=== PATIENT | male | born 1985 | race Caucasian/White ===

== ENCOUNTER 2018-08-16 20:07 | Emergency (ER) | payer OTHER ==
[~2018-08-16] VITALS: Ht 180.3 cm; Wt 72.6 kg
[2018-08-16 21:42] VITALS: BP 135/87
== END 2018-08-16 21:42 | disposition home or self-care (01) ==
LOC: M.ERS 20:07
DX: J02.8 Acute pharyngitis due to other specified organisms (principal); B97.89 Other viral agents as the cause of diseases classified elsewhere

== ENCOUNTER 2018-09-15 09:01 | Inpatient (IN) | payer OTHER ==
[~2018-09-15] VITALS: Ht 177.8 cm; Wt 130.6 kg
--- NOTE | ~2018-09-15 | CON ---
[address] [address] CONSULTATION Name: BETH ISAACS Room: [address] IN M.R.#: [id number] Admission: 09/15/18 Attend Phys: Che Serna MD Discharge: Date of : 89 Report #: [id number] THIS REPORT FOR: //name// CC: [facility] physician/PCP Che Serna DATE OF SERVICE: 09/15/2018 HISTORY OF PRESENT ILLNESS: This is a 32-year-old male patient who was evaluated by me because this patient was having headache. Headache was predominantly on the right side. He woke up with this headache in the morning. He also had some fever and rhinorrhea. He describes headache as severe headache. The headache has resolved since then. Only time he gets headache now if he tries to get up. He had a spinal tap done in the Emergency Room and the spinal tap is basically unremarkable. There is no evidence of any meningitis. REVIEW OF SYSTEMS: Pretty unusual in this patient. He was here not too long ago. I reviewed those records and talked to the admitting doctor, Dr. Serna. He was admitted in very unusual circumstances. He even does not describe me that and what he described is different than that. So, the history is very confusing and is not straightforward. He basically says that he was walking towards home and does not know what happened to him. The history I get from the record is somewhat different. In any event, he also had some injury to the right leg where a titanium zoya was put in. He has no prior history of migraine headache. His last creatinine is 3. His blood pressure has been somewhat high when he came in. It is becoming better now. This was his relevant 14-point review of system. He did have some flu-like symptoms. He had some nagel bite. He has a history of substance abuse and pretty unusual history as summarized in last admission. PAST MEDICAL HISTORY: Positive for what he described as injury to the leg. FAMILY HISTORY: Negative for early age stroke. SOCIAL HISTORY: He has history of substance abuse as I understand. PHYSICAL EXAMINATION: Indicate he is alert. He is responsive. He said he was photophobic. So, we would like to get the lights closed. So, exam was limited because of that, but his cranial nerve examination the best I can tell is unremarkable. I did not attempt to do the fundus. I will do that tomorrow. He moves all four extremities. His position sense is intact. His cardiac examination is unremarkable. His respiratory examination is unremarkable. His blood pressure is 161/95, respiration is 24, pulse is 92, temperature is 99.5 now. He was febrile when he came in. LABORATORY DATA: His white count was trace high. His GFR is still 25. [place] [address] CONSULTATION Name: ISAACSBETH Kelsey Room: [address] IN [facility]#: [id number] Admission: 09/15/18 Attend Phys: Che Serna MD Discharge: Date of : 89 Report #: [id number] IMPRESSION: The chances are low that there is any serious cause for his headaches for which he came in. He appeared to be developing post-spinal headache and that need to be addressed. His headache may be related to viral infection or some systemic infections. It is already either leave it, but I think we should do some further workup to exclude any other pathology. I suggested an MRI of the brain and MRA of the head and neck especially because he had head injury and we want to make sure of any dissection, but history is not very typical for that. That is basically all the recommendation I will have. If post-spinal headache developed then pain management may have to be consulted in this patient and he may very well develop that. I asked him to stay flat tonight. The patient was discussed with Dr. Serna and we will follow the patient along with you. By: [id number] Evans MD /nt
[~2018-09-15 09:01] MED LIST: ALPRAZOLAM0.5 M2 PO; LISINOPRIL2.5 MG PO; NORVASC10 MG PO; PERCOCET PO
[2018-09-15 09:04] VITALS: BP 180/100
[2018-09-15 09:27] LABS: HEMATOCRIT 40.9 % (42.0-52.0); HEMOGLOBIN 14.4 gm/dL (14.0-18.0); MCH 30.2 pg (26.0-34.0); MCHC 35.1 g/dL (28.0-37.0); MCV 85.9 fL (80.0-100.0); NUCLEATED RBCS 0 /100WBC; PLATELET COUNT* 370 thou/uL (150-400); RBC 4.76 mil/uL (4.50-6.00); RDW-CV 13.3 % (10.5-14.5); WBC 12.7 thou/uL (4.0-11.0)
[2018-09-15 09:33] LABS: ANION GAP 15 mmol/L (7-16); BUN 25 mg/dL (7-18); CALCIUM 9.5 mg/dL (8.5-10.1); CHLORIDE 104 mmol/L (98-107); CO2 21 mmol/L (21-32); GLUCOSE 105 mg/dL (70-99); POTASSIUM 4.1 mmol/L (3.5-5.1); SODIUM 140 mmol/L (136-145)
[2018-09-15 09:40] LABS: ALBUMIN 3.5 g/dL (3.4-5.0); ALKALINE PHOSPHATASE 76 U/L (46-116); SGOT 30 U/L (15-37); SGPT 46 U/L (30-65); TOTAL BILIRUBIN 0.6 mg/dL (<0.1-1.0); TOTAL PROTEIN 7.5 g/dL (6.4-8.2); TROPONIN-I LEVEL <0.06 ng/mL (<0.06)
[2018-09-15 10:21] LABS: INFLUENZA A ANTIGEN None Detected (None Detect); INFLUENZA B ANTIGEN None Detected (None Detect)
[2018-09-15 10:33] LABS: ABSOLUTE EOSINOPHILS 0.1 thou/uL (0.0-0.7); ABSOLUTE LYMPHOCYTES 0.8 thou/uL (0.8-5.3); ABSOLUTE MONOCYTES 0.4 thou/uL (0.0-1.2); ABSOLUTE NEUTROPHILS 11.4 thou/uL (1.6-8.1); PLATELET ESTIMATE ADEQUATE
[2018-09-15 10:43] LABS: URINE BILIRUBIN NEGATIVE (Negative); URINE BLOOD TRACE (Negative); URINE CLARITY CLEAR; URINE COLOR YELLOW; URINE GLUCOSE-RANDOM NEGATIVE (Negative); URINE KETONES TRACE (Negative); URINE LEUKOCYTES-REFLEX NEGATIVE (Negative); URINE NITRITE-REFLEX NEGATIVE (Negative); URINE PROTEIN NEGATIVE (Negative); URINE UROBILINOGEN 0.2 E.U./dl (0.2-1.0)
[2018-09-15 11:21] LABS: CSF GLUCOSE 58 mg/dl (40-70); CSF PROTEIN 36.7 mg/dl (15-45)
[2018-09-15 11:59] LABS: CSF CLARITY CLEAR; CSF COLOR COLORLESS; CSF RBC 2 /mm3; CSF WBC 1 /mm3 (0-10); VOLUME 12 ml
[2018-09-15] MEDS ORDERED: DIFLUCAN200 MG PO (12:31)
[2018-09-15] MEDS ORDERED: DOXYCYCLINE 10100 MG PO (12:31)
[2018-09-15 14:52] LABS: AMP/METHAMP Negative (Negative); BARBITURATES Negative (Negative); BENZODIAZEPINES Negative (Negative); COCAINE Negative (Negative); METHADONE Negative (Negative); OPIATES Negative (Negative); PCP Negative (Negative); THC Negative (Negative)
[2018-09-15 16:21] VITALS: BP 164/98
[2018-09-15 16:46] VITALS: BP 161/95
[2018-09-15 19:50] VITALS: BP 160/87
[2018-09-15 23:02] VITALS: BP 145/93
[2018-09-16 04:00] VITALS: BP 142/93
[2018-09-16 05:24] LABS: ABSOLUTE BASOPHILS 0.1 thou/uL (0.0-0.2); ABSOLUTE LYMPHOCYTES 1.2 thou/uL (0.8-5.3); ABSOLUTE MONOCYTES 0.9 thou/uL (0.0-1.2); ABSOLUTE NEUTROPHILS 11.4 thou/uL (1.6-8.1); BASOPHILS 0.4 %; EOSINOPHILS 0.2 %; HEMATOCRIT 36.7 % (42.0-52.0); HEMOGLOBIN 12.9 gm/dL (14.0-18.0); LYMPHOCYTES 8.6 %; MCH 30.4 pg (26.0-34.0); MCHC 35.1 g/dL (28.0-37.0); MCV 86.8 fL (80.0-100.0); MONOCYTES 6.6 %; MPV 8.4 fl. (7.2-11.1); NUCLEATED RBCS 0 /100WBC; PLATELET COUNT* 349 thou/uL (150-400); POLYS 84.2 %; RBC 4.23 mil/uL (4.50-6.00); RDW-CV 13.3 % (10.5-14.5); WBC 13.6 thou/uL (4.0-11.0)
[2018-09-16 05:34] LABS: CALCIUM 8.7 mg/dL (8.5-10.1); CREATININE 2.5 mg/dL (0.6-1.3)
[2018-09-16 08:00] VITALS: BP 148/96
[2018-09-16 12:00] VITALS: BP 169/112
--- NOTE | 2018-09-16 12:17 | EKG ---
[place] [address] ELECTROCARDIOGRAM REPORT Name: BETH ISAACS Room: [address] ADM IN .R.#: [id number] Admission: 09/15/18 Attend Phys: Che Serna MD Discharge: Date of : 89 Report #: [id number] THIS REPORT FOR: //name// [facility] ED Test Date: 2018-09-15 Test Time: 09:06:05 Pat Name: BETH ISAACS Department: Room: [facility] Gender: Cigar Brander: SHAYE : 1985 Requested By: Sohail Estrada Order Number: [id number] MD: Deuce Adams Measurements Intervals Whittaker Rate: 87 P: 69 SD: 115 QRS: 65 QRSD: 75 T: 58 QT: 418 QTc: 503 Interpretive Statements Sinus rhythm Borderline short SD interval Probable left atrial enlargement Prolonged QT interval Compared to ECG 09/05/2018 09:53:18 Prolonged QT interval now present Sinus tachycardia no longer present Electronically Signed On 09-16-2018 12:17:28 [employer] by Deuce Adams [email or web address] <ELECTRONICALLY SIGNED> By: Deuce Adams MD, [facility] 09/16/18 1217 [id number] [id number] Deuce Adams MD, [facility] /EPI
[2018-09-16 16:00] VITALS: BP 158/105
[2018-09-16 20:00] VITALS: BP 159/102
[2018-09-16 23:30] VITALS: BP 166/107
[2018-09-17 00:20] VITALS: BP 153/93
[2018-09-17 03:45] VITALS: BP 166/114
[2018-09-17 08:48] VITALS: BP 176/109
[2018-09-17 12:00] VITALS: BP 157/107
[2018-09-17 16:00] VITALS: BP 168/112
[2018-09-17 20:09] VITALS: BP 151/95
[2018-09-18 00:42] VITALS: BP 157/119
[2018-09-18 04:00] VITALS: BP 145/93
[2018-09-18 05:36] LABS: APTT 27.7 Seconds (25.0-31.3); PROTIME 10.2 Seconds (9.20-11.50)
[2018-09-18 08:00] VITALS: BP 135/84
[2018-09-18 08:39] LABS: HEMATOCRIT 40.2 % (42.0-52.0); MCH 30.5 pg (26.0-34.0); MCHC 34.8 g/dL (28.0-37.0); MCV 87.8 fL (80.0-100.0); MPV 8.5 fl. (7.2-11.1); RBC 4.58 mil/uL (4.50-6.00); RDW-CV 13.4 % (10.5-14.5); WBC 9.6 thou/uL (4.0-11.0)
[2018-09-18 08:44] LABS: CALCIUM 9.2 mg/dL (8.5-10.1); CREATININE 2.1 mg/dL (0.6-1.3); POTASSIUM 4.6 mmol/L (3.5-5.1)
[2018-09-18 09:00] LABS: ALBUMIN 3.6 g/dL (3.4-5.0); TOTAL BILIRUBIN 0.2 mg/dL (<0.1-1.0); TOTAL PROTEIN 7.2 g/dL (6.4-8.2)
[2018-09-18 12:00] VITALS: BP 145/90
[2018-09-18 18:05] VITALS: BP 154/91
[2018-09-19] VITALS (10 sets, daily range): BP systolic 130–182; BP diastolic 94–115
[2018-09-19 04:43] LABS: HEMATOCRIT 39.4 % (42.0-52.0); HEMOGLOBIN 13.7 gm/dL (14.0-18.0); MCHC 34.7 g/dL (28.0-37.0); MCV 86.7 fL (80.0-100.0); MPV 7.9 fl. (7.2-11.1); RBC 4.54 mil/uL (4.50-6.00); RDW-CV 13.2 % (10.5-14.5); WBC 12.5 thou/uL (4.0-11.0)
[2018-09-19 04:56] LABS: CALCIUM 9.1 mg/dL (8.5-10.1); PHOSPHORUS* 3.7 mg/dL (2.5-4.9); POTASSIUM 4.3 mmol/L (3.5-5.1)
--- NOTE | 2018-09-19 06:55 | OP ---
[address] [address] OPERATIVE REPORT Name: ISAACSBETH Kelsey Room: [address] IN ..#: [id number] Admission: 09/15/18 Attend Phys: Che Serna MD Discharge: Date of : 89 Report #: [id number] THIS REPORT FOR: //name// CC: [facility] physician/PCP Che Serna DATE OF SERVICE: 09/18/2018 PREOPERATIVE DIAGNOSIS: Displaced right radial styloid fracture. POSTOPERATIVE DIAGNOSIS: Displaced right radial styloid fracture. SURGERY PERFORMED: Open reduction internal fixation of the radial styloid fracture using Synthes compression screws, 2.4 and 3.0 and release first dorsal wrist compartment. SURGEON: Alan Higgins DO. TENTER FEEDER: Aj Barber DO, resident. ANESTHESIA: General anesthetic plus local anesthetic. ANTIBIOTICS: The patient did receive Rocephin 1 gram IV piggyback preoperatively. DRAINS: None. SPECIMEN: None. COMPLICATIONS: The patient had no complications. ESTIMATED BLOOD LOSS: 3 mL. GROSS FINDINGS: Prior to surgery, this patient had a long protracted history of multiple comorbidities. Was in ICU, intubated for many days before he was out of the ICU and then has significant other comorbidities that prevented Orthopedics from getting to his surgery sooner. At this point in time, the patient was stable enough for surgery now. Gross findings did demonstrate the patient had started to develop scar tissue formation with some early fracture, healing across the fracture site noted upon release of the first compartment. This was broken down. The fracture was manipulated, put into a better tip position and the tilt by tilting. The patient then had the fixation. SURGERY IN DETAIL: The patient was taken to the operating room and placed on table, given the benefit of general anesthetic. The patient had a well-padded tourniquet placed on the right upper extremity. [place]went [place] [address] OPERATIVE REPORT Name: ISAACSBETH Room: [address] IN [facility]#: [id number] Admission: 09/15/18 Attend Phys: Che Serna MD Discharge: Date of : 89 Report #: [id number] chlorhexidine prep and sterile draping for right arm surgery. Timeout was called and verified for the right upper extremity. Surgery began with an Esmarch in the extremity including tourniquet 250 mmHg. Under loupe magnification, a longitudinal incision was made in line with the arm over the first dorsal wrist compartment with a 15 blade scalpel, the skin and subcutaneous tissues. Sensory nerve was retracted off to the side as well as the large veins over this area. The first compartment retinaculum was released by scalpel and scissors technique. The extensor tendons were retracted off each side. Once this was accomplished, I probed using elevator and the fracture site was finally found. It was opened up and mechanically by use of that [place]ingham migrated the entire fracture fragment free using C-arm for guidance. Once we got into an acceptable position, two parallel K-wires were placed across the fracture fragment. They were overreamed and then, the 3.0 and the 2.4 screws were used to compress the fracture site. Screws were just countersunk beneath the cortex. At this point in time, Surgery now continued with irrigation prior to closure. Any loose fragments of bone that were manipulated were packed back into that fracture site prior to closure. Tourniquet was released. Hemostasis was maintained. Subcutaneous tissues were closed with 3-0 Monocryl in inverted fashion and running 3-0 nylon to the skin. Xeroform, 4 x 4, Kerlix, soft roll with a volar splint extension splint was applied, Angel wrapped into position. The patient did have local anesthetic infiltrated as well prior to dressing. The patient was taken to recovery in stable condition. <ELECTRONICALLY SIGNED> By: Alan Higgins DO 09/19/18 0655 [id number] Higgins DO /court
[2018-09-19] MEDS ORDERED: LIORESAL 10 MG10 MG PO (10:26)
[2018-09-19] MEDS ORDERED: NORVASC10 MG PO (10:27)
[2018-09-19] MEDS ORDERED: CHLORTHALIDONE25 MG PO (10:27)
[2018-09-19] MEDS ORDERED: MAGIC MOUTHWASH BLM SW&SWALLOW (10:28)
== END 2018-09-19 16:57 | disposition home or self-care (01) | DRG 510 ==
LOC: M.ERS 09:01 → M.TBA-ER 13:14 → M.2W 13:14 → M.ORTHSURG 09-18 16:39
PROVIDERS: Emergency Medicine Emergency Medical Services; Student in an Organized Health Care Education/Training Program; ADMIT Family Medicine
PROC: 009U3ZX Drainage of Spinal Canal, Percutaneous Approach, Diagnostic (ICD-10-PCS; principal; 2018-09-15)
PROC: 0PSH04Z Reposition Right Radius with Internal Fixation Device, Open Approach (ICD-10-PCS; 2018-09-18)
DX: S52.511A Displaced fracture of right radial styloid process, initial encounter for closed fracture (principal); N17.0 Acute kidney failure with tubular necrosis; G93.41 Metabolic encephalopathy; R65.10 Systemic inflammatory response syndrome (SIRS) of non-infectious origin without acute organ dysfunction; G43.909 Migraine, unspecified, not intractable, without status migrainosus; F17.210 Nicotine dependence, cigarettes, uncomplicated; I10 Essential (primary) hypertension; X58.XXXA Exposure to other specified factors, initial encounter; Y93.89 Activity, other specified; Y92.89 Other specified places as the place of occurrence of the external cause; Y99.8 Other external cause status; Z87.81 Personal history of (healed) traumatic fracture; Z87.828 Personal history of other (healed) physical injury and trauma; Z79.899 Other long term (current) drug therapy